=== PATIENT | female | born 1955 | race Caucasian/White ===

== ENCOUNTER 2017-08-03 13:02 | Emergency (ER) | payer MEDICARE ==
[2017-08-03] MEDS ORDERED: DIPH,PERTUS(ACELL)TETVAC-LF 0.5 ML VIAL IM ONE (13:12)
--- NOTE | 2017-08-03 13:17 | ED ---
Fall HPI <Dread Todd - Last Filed: 08/03/17 15:15> - General Source: patient, family, EMS, RN notes reviewed - History of Present Illness MD Complaint: fall <JohnathanGilberto - Last Filed: 08/03/17 15:24> - General Stated Complaint: FACIAL INJURY FROM FALL Time Seen by Provider: 08/03/17 13:02 - History of Present Illness Initial Comments: This is a 61-year-old female with a history dementia who tripped try to go up a step and landed on her face hitting the tile floor. No reports of loss of consciousness no nausea vomiting blurry vision she denies any neck pain or back pain or extremity injury except for some pain to the right elbow in a elbow as previously repaired. Patient not any blood thinners. Any injury. She was brought in by EMS. No cervical collar was in place. (JohnathanGilberto) - Related Data Home Medications Medication Instructions Recorded Confirmed ARIPiprazole [Abilify] 20 mg PO DAILY 08/03/17 08/03/17 Aspirin 81 mg PO DAILY 08/03/17 08/03/17 Benztropine Mesylate [Cogentin] 0.5 mg PO BID 08/03/17 08/03/17 Calcium Carbonate/Vitamin D3 1 tab PO DAILY 08/03/17 08/03/17 [Calcium 600-Vit D3 200 Tablet] Calcium Polycarbophil [Fibercon] 625 mg PO DAILY 08/03/17 08/03/17 Docusate Sodium [Dok] 200 mg PO DAILY 08/03/17 08/03/17 Donepezil [Aricept] 10 mg PO W/SUPPER 08/03/17 08/03/17 Furosemide [Lasix] 20 mg PO DAILY 08/03/17 08/03/17 Losartan Potassium [Cozaar] 100 mg PO HS 08/03/17 08/03/17 Meloxicam [Mobic] 7.5 mg PO DAILY 08/03/17 08/03/17 Metoprolol Succinate (ER) [Toprol 50 mg PO DAILY 08/03/17 08/03/17 Xl] Multivitamins, Thera [Multivitamin 1 tab PO DAILY 08/03/17 08/03/17 (formulary)] Pravastatin Sodium [Pravachol] 40 mg PO DAILY 08/03/17 08/03/17 buPROPion XL [Wellbutrin Xl] 150 mg PO DAILY 08/03/17 08/03/17 lamoTRIgine [LaMICtal] 100 mg PO BID 08/03/17 08/03/17 Allergies Allergy/AdvReac Type Severity Reaction Status Date / Time No Known Allergies Allergy Verified 08/03/17 13:44 Review of Systems ROS Other: All systems not noted in ROS Statement are negative. <Dread Todd - Last Filed: 08/03/17 15:15> ROS Other: All systems not noted in ROS Statement are negative. <Gilberto Mann - Last Filed: 08/03/17 15:24> ROS Statement: Those systems with pertinent positive or pertinent negative responses have been documented in the HPI. General Exam <Dread Todd - Last Filed: 08/03/17 15:15> Limitations: physical limitation General appearance: alert, other (Patient does demonstrate a hematoma with 2 superficial lacerations to the left medial forehead. No formed by step-off or crepitation or deformity seen. Nasal appears be intact there is a large lip laceration seen to the left upper lip. No active bleeding at this time.) Head exam: Present: normocephalic. Absent: normal inspection Eye exam: Present: normal appearance, PERRL, EOMI. Absent: scleral icterus, conjunctival injection, periorbital swelling ENT exam: Present: TM's normal bilaterally, other (Lip laceration as described approximately 2 cm through and through. Oropharynx reveals dentition which appears be intact with a slight chip to the left front tooth which apparently was here before. There is some mild tenderness but no evidence of any avulsion. No tenderness palpation of the mandible.) Neck exam: Present: normal inspection, tenderness, other (Mild posterior soft tissue tenderness palpation no definite midline tenderness. No step-off no crepitation). Absent: lymphadenopathy Respiratory exam: Present: normal lung sounds bilaterally Cardiovascular Exam: Present: regular rate, normal rhythm, normal heart sounds. Absent: systolic murmur, diastolic murmur, rubs, gallop, clicks GI/Abdominal exam: Present: soft, other (Obese abdomen). Absent: tenderness Rectal exam: Present: deferred Extremities exam: Present: normal inspection, full ROM, tenderness, normal capillary refill, other (Mild tenderness palpation of the right elbow no step- off no crepitation. This appeared be full range of motion the tenderness is to the posterior aspect.) Neurological exam: Present: alert, oriented X3, CN II-XII intact Psychiatric exam: Present: normal affect, normal mood Skin exam: Present: warm, dry, normal color. Absent: intact <Gilberto Mann - Last Filed: 08/03/17 15:24> - General Exam Comments Initial Comments: This is a well up well-nourished awake alert oriented 3 female she does have straight a Phelps Coma Scale of 15 at this time. (Gilberto Mann) Vital Signs 08/03/17 08/03/17 13:05 14:53 Temperature 96.8 F L 97.3 F L Pulse Rate 73 68 Respiratory 16 16 Rate Blood Pressure 146/79 137/65 O2 Sat by Pulse 98 99 Oximetry Procedures <Dread Todd - Last Filed: 08/03/17 15:15> <Gilberto Mann - Last Filed: 08/03/17 15:24> - Procedures Initial comment: Lacerations to the forehead measuring approximately 1 cm piece running parallel to each other just above the left eyebrow. He was saline and closed with Dermabond. Third laceration to the upper lip through the vermilion border measuring total of 2 cm in total length.The skin was anesthetized with 1% lidocaine. The laceration was then cleansed with and irrigated with normal saline. The wound was inspected, and there was no evidence of injury to deep structures. No foreign body was noted in the wound. A total of 4 skin sutures were placed utilizing 5-0 nylon. (Dread Todd) Medical Decision Making <Dread Todd - Last Filed: 08/03/17 15:15> - Radiology Data Radiology results: report reviewed (I did review the imaging and reports no evidence of acute fractures dislocations no intracranial bleeds.), image reviewed <Gilberto Mann - Last Filed: 08/03/17 15:24> - Medical Decision Making The patient's laceration were repaired by my physician export sales assistant Dread. Patient will be discharged she is a follow-up as planned. (Gilberto Mann) Disposition <Dread Todd - Last Filed: 08/03/17 15:15> <Gilberto Mann - Last Filed: 08/03/17 15:24> Clinical Impression: Fall, Lip laceration, Forehead laceration, Facial contusion, Contusion of right elbow Disposition: HOME SELF-CARE Condition: Good Instructions: Laceration (ED), Fall Prevention for Older Adults (ED), Facial Contusion (ED), Facial Laceration (ED) Additional Instructions: Follow-up with orthopedics for reevaluation of your right elbow. Okay to use your home pain medication Referrals: None,Stated [Primary Care Provider] - 1-2 days
--- NOTE | 2017-08-03 14:31 | CT ---
EXAMINATION TYPE: CT brain belén wo con DATE OF EXAM: 08/03/2017 COMPARISON: NONE HISTORY: 61-year-old female Facial abrasions after fall injury. CT DLP: 1656.5 mGycm Automated exposure control for dose reduction was used. Technique: Examination of the head was done in axial plane without intravenous contrast. Coronal and sagittal reconstructions performed. CT of the cervical spine was obtained in axial plane without intravenous injection of contrast mater ial. Coronal and sagittal reformatted images were obtained from the axial views for evaluation of f ractures, spinal alignment and canal. FINDINGS: Head: There is no evidence of acute intracranial hemorrhage, acute ischemic changes, mass, mass-effect, or extra-axial fluid collection. There is no effacement of cerebral sulci or basal subarachnoid cister ns. There is no hydrocephalus. There is no midline shift. Hooker-white matter distinction is preserv ed. Mild to moderate left frontal scalp contusion/hematoma. No underlying calvarial fracture. Mastoid air cells well pneumatized. Cervical spine: No craniocervical junction of the body, predental space widening, or prevertebral soft tissue swellin g. There is ACDF from C4 through C6 levels and posterior cervical fusion from C3 through T1 levels. Corresponding laminectomy changes are present. Prominent level hardware artifacts limiting the evaluation. Bony spondylotic changes cause variable moderate neuroforaminal stenosis, particularly on the left C6 /C7 and to a lesser extent on both sides C5-C6. Sagittal and coronal reformatted images confirm above findings. COMBINED IMPRESSION: 1. Left forehead contusion. No underlying calvarial fracture or acute intracranial abnormality seen. 2. Status post ACDF and posterior cervical fusion with laminectomies. Prominent metal hardware artifa cts limiting assessment. No acute fracture or malalignment identified. There is variable moderate mindy ral foraminal stenosis, particularly at C5-C6 and C6-C7. 3. Facial bones to be reported separately.
--- NOTE | 2017-08-03 14:33 | CT ---
EXAMINATION TYPE: CT facial bones wo con DATE OF EXAM: 08/03/2017 COMPARISON: NONE HISTORY: 61-year-old female with facial abrasions after fall injury. TECHNIQUE: Contiguous axial scanning of the facial bone without IV contrast. Coronal reconstructions performed. CT DLP: 593.7 mGycm Automated exposure control for dose reduction was used. FINDINGS: There is a [id number] left forehead scalp contusion. No underlying sinus wall, orbital, nasal b one, facial bone, or mandibular fracture seen. Paranasal sinuses are clear. Slight leftward nasal septal deviation. Orbits and globes are intact. The zygomatic arches and pterygoid plates are intact. IMPRESSION: LEFT FOREHEAD SOFT TISSUE CONTUSION. NO UNDERLYING ACUTE FACIAL BONE FRACTURE.
--- NOTE | 2017-08-03 14:39 | XR ---
EXAMINATION TYPE: XR elbow complete RT DATE OF EXAM: 08/03/2017 COMPARISON: NONE HISTORY: 60-year-old female with pain after fall TECHNIQUE: 4 views FINDINGS: There is underlying fracture deformity of both the ulnar coronoid process and radial head/n prakash. These appear to be chronic deformities and secondary underlying osteoarthrosis of the elbow. Clay te and screw fixation along the olecranon and proximal ulna. However, there is a small elbow joint ef fusion. IMPRESSION: Posttraumatic osteoarthrosis of the elbow. There is plate and screw fixation at the proximal ulna and deformity of the radial head and neck suspected to relate to an old fracture deformity. The elbow hilario int effusion could be reactive or reflect occult internal derangement. Short interval follow-up as cl inically indicated.
[2017-08-03] MEDS ORDERED: TOPICAL SKIN ADHESIVE 1 EACH AMP TOPICAL ONE (14:54)
[2017-08-03 15:30] VITALS: BP 138/67; PULSE 82; RESP 14; TEMP 97.8
== END 2017-08-03 15:25 | disposition home or self-care (01) ==
LOC: EC 13:02
DX: S01.511A Laceration without foreign body of lip, initial encounter (principal); S01.81XA Laceration without foreign body of other part of head, initial encounter; S50.01XA Contusion of right elbow, initial encounter; R40.2412 Glasgow coma scale score 13-15, at arrival to emergency department; F03.90 Unspecified dementia, unspecified severity, without behavioral disturbance, psychotic disturbance, mood disturbance, and anxiety; Z79.1 Long term (current) use of non-steroidal anti-inflammatories (NSAID); Z79.82 Long term (current) use of aspirin; Z79.899 Other long term (current) drug therapy; Z23 Encounter for immunization; W01.198A Fall on same level from slipping, tripping and stumbling with subsequent striking against other object, initial encounter; Y93.01 Activity, walking, marching and hiking
CPT/HCPCS: 12011; 40650; 70450; 70486; 72125; 90471; 90715; 99284